=== PATIENT | female | born 1960 | race Caucasian/White ===

== ENCOUNTER 2020-07-05 11:29 | Emergency (ER) | payer MEDICAID ==
[~2020-07-05] VITALS: Ht 162.6 cm; Wt 55.5 kg
[2020-07-05 11:37] VITALS: BP 121/76
[2020-07-05] MEDS ORDERED: LIDOcaine 1% W/epiNEPHrine 1:200,000 10ml vial IJ ONE (12:35)
[2020-07-05] MEDS ORDERED: acetaminophen 325mg tablet PO ONE (12:35)
[2020-07-05] MEDS ORDERED: SULF1TAB45 PO (13:37)
== END 2020-07-05 13:53 | disposition home or self-care (01) ==
LOC: ER 11:30
DX: L02.416 Cutaneous abscess of left lower limb (principal); F12.90 Cannabis use, unspecified, uncomplicated; R10.32 Left lower quadrant pain; F10.10 Alcohol abuse, uncomplicated; Z88.0 Allergy status to penicillin; Z79.899 Other long term (current) drug therapy; Y90.9 Presence of alcohol in blood, level not specified
CPT/HCPCS: 10060; 99283